=== PATIENT | female | born 1995 | race Caucasian/White ===

== ENCOUNTER → 2020-12-05 | Outpatient (CLI) | payer OTHER | LOC: KOH-I 10:42 | DX: M25.571 Pain in right ankle and joints of right foot (principal); R60.0 Localized edema | CPT/HCPCS: 73610 ==

== ENCOUNTER → 2020-12-11 | Outpatient (CLI) | payer OTHER | LOC: EMI 16:14 | DX: M25.571 Pain in right ankle and joints of right foot (principal); G89.29 Other chronic pain; M79.89 Other specified soft tissue disorders | CPT/HCPCS: 73721 ==

== ENCOUNTER → 2021-09-26 | Day surgery (SDC) | payer OTHER ==
[~2021-09-26] VITALS: Ht 149.9 cm; Wt 77.6 kg
[~2021-09-26] MED LIST: CLARITIN10 M2 PO; PROVENTIL HFA6.7 GM INH
== END | disposition home or self-care (01) ==
LOC: OR 08:20
DX: M25.371 Other instability, right ankle (principal); S93.491A Sprain of other ligament of right ankle, initial encounter; J45.909 Unspecified asthma, uncomplicated; X58.XXXA Exposure to other specified factors, initial encounter; Z88.0 Allergy status to penicillin; Z88.1 Allergy status to other antibiotic agents; Z88.2 Allergy status to sulfonamides; Z79.899 Other long term (current) drug therapy
CPT/HCPCS: C1713; J0171; J1100; J1885; J2001; J2250; J2405; J2704; J2795; J3010; J3370; J7120

== ENCOUNTER → 2021-11-26 | Outpatient (CLI) | payer OTHER | LOC: KOH-I 13:34 | DX: S93.492A Sprain of other ligament of left ankle, initial encounter (principal); S93.422A Sprain of deltoid ligament of left ankle, initial encounter | CPT/HCPCS: 73721 ==